=== PATIENT | female | born 1945 | race Caucasian/White ===

== ENCOUNTER 2018-07-17 14:07 | Inpatient (IN) | payer OTHER ==
[~2018-07-17] VITALS: Ht 165.1 cm; Wt 176.0 kg
[2018-07-17 15:05] LABS: BASOPHIL % 0.6 % (0-2); CALCIUM 9.3 mg/dL (8.5-10.1); CARBON DIOXIDE 29.5 mmol/L (21-32); CHLORIDE SERUM 105 mmol/L (98-107); CREATININE SERUM 0.8 mg/dL (0.6-1.0); GLUCOSE SERUM 115 mg/dL (74-106); PLATELET COUNT 183 x10^3mcL (130-400); POTASSIUM SERUM 3.5 mmol/L (3.5-5.1); SODIUM SERUM 141 mmol/L (136-145)
[2018-07-17 15:06] LABS: RED CELL DISTRIBUTION WIDTH 15.3 % (11.5-14.5)
[2018-07-17 15:10] LABS: ALKALINE PHOSPHATASE 88 U/L (46-116); ALT/SGPT 19 U/L (14-59); AST/SGOT 20 U/L (15-37); BILIRUBIN TOTAL 1.4 mg/dL (0.20-1.00); TOTAL PROTEIN, SERUM 6.8 g/dL (6.4-8.2)
[2018-07-17 15:20] LABS: T4(THYROXINE) 8.5 ug/dL (4.7-13.3)
[2018-07-17 16:55] LABS: CHOLESTEROL/HDL RATIO 2.6; MAGNESIUM 1.7 mg/dL (1.8-2.4); PHOSPHOROUS 3.5 mg/dL (2.5-4.9)
[2018-07-17] MEDS ORDERED: KLOR-CON M2020 MEQ PO (17:19)
[2018-07-17] MEDS ORDERED: APAP500 MG PO (17:22)
[2018-07-17] MEDS ORDERED: CRANBERRY425 MG PO (17:24)
[2018-07-17] MEDS ORDERED: VOLTAREN100 GM TOP (17:24)
[2018-07-17] MEDS ORDERED: DIG125 PO (17:25)
[2018-07-17] MEDS ORDERED: CALCIUM CITRAT250 M1 PO (17:25)
[2018-07-17] MEDS ORDERED: XARELTO10 M1 PO (17:26)
[2018-07-17] MEDS ORDERED: LASIX40 MG PO (17:27)
[2018-07-17] MEDS ORDERED: MULTI-VITAMINS1 TAB PO (17:28)
[2018-07-17] MEDS ORDERED: LOTENSIN40 MG PO (17:29)
[2018-07-17] MEDS ORDERED: MAGNESIUM OXID400 MG PO (17:29)
[2018-07-17] MEDS ORDERED: ZYLOPRIM300 MG PO (17:30)
[2018-07-17] MEDS ORDERED: LIPITOR40 MG PO (17:30)
[2018-07-17] MEDS ORDERED: METOPROLOL TAR100 MG PO (17:31)
[2018-07-17] MEDS ORDERED: ASPIR 8181 MG PO (17:32)
[2018-07-17 18:18] VITALS: BP 124/76
[2018-07-17 19:29] VITALS: BP 113/72
[2018-07-17 20:54] VITALS: BP 113/70
[2018-07-17 22:00] VITALS: BP 109/82
[2018-07-18 05:50] VITALS: BP 97/65
[2018-07-18 05:56] LABS: BASOPHIL % 0.6 % (0-2); PLATELET COUNT 182 x10^3mcL (130-400)
[2018-07-18 06:43] LABS: CALCIUM 9.2 mg/dL (8.5-10.1); CARBON DIOXIDE 33.4 mmol/L (21-32); CHLORIDE SERUM 104 mmol/L (98-107); CREATININE SERUM 0.9 mg/dL (0.6-1.0); GLUCOSE SERUM 97 mg/dL (74-106); MAGNESIUM 1.9 mg/dL (1.8-2.4); PHOSPHOROUS 4.2 mg/dL (2.5-4.9); POTASSIUM SERUM 4.3 mmol/L (3.5-5.1); SODIUM SERUM 143 mmol/L (136-145)
[2018-07-18 06:46] LABS: RED CELL DISTRIBUTION WIDTH 15.1 % (11.5-14.5)
[2018-07-18 08:19] VITALS: BP 106/74
[2018-07-18 12:15] VITALS: BP 110/57
[2018-07-18 16:31] VITALS: BP 93/51
[2018-07-18 20:45] VITALS: BP 99/52
[2018-07-18 21:20] LABS: UA SPECIFIC GRAVITY 1.015 (1.005-1.035); microscopic required? YES; urine erythrocyte 2+ (NEGATIVE)
[2018-07-19 05:26] VITALS: BP 102/62
[2018-07-19 08:22] VITALS: BP 105/66
[2018-07-19 12:15] VITALS: BP 93/55
[2018-07-19 17:02] VITALS: BP 94/59
[2018-07-19 21:12] VITALS: BP 96/55
[2018-07-20] VITALS (7 sets, daily range): BP systolic 97–116; BP diastolic 54–74
[2018-07-20 06:37] LABS: CALCIUM 8.6 mg/dL (8.5-10.1); CARBON DIOXIDE 31.1 mmol/L (21-32); CHLORIDE SERUM 105 mmol/L (98-107); CREATININE SERUM 0.7 mg/dL (0.6-1.0); GLUCOSE SERUM 108 mg/dL (74-106); PHOSPHOROUS 3.4 mg/dL (2.5-4.9); SODIUM SERUM 141 mmol/L (136-145)
[2018-07-20 06:56] LABS: POTASSIUM SERUM 2.6 mmol/L (3.5-5.1)
[2018-07-20 07:36] LABS: BASOPHIL % 0.5 % (0-2); PLATELET COUNT 181 x10^3mcL (130-400)
[2018-07-20 07:41] LABS: RED CELL DISTRIBUTION WIDTH 15.2 % (11.5-14.5)
[2018-07-20 21:07] LABS: ALBUMIN 2.8 g/dL (3.4-5.0); ALKALINE PHOSPHATASE 66 U/L (46-116); ALT/SGPT 14 U/L (14-59); AST/SGOT 15 U/L (15-37); BILIRUBIN TOTAL 1.9 mg/dL (0.20-1.00); CALCIUM 8.6 mg/dL (8.5-10.1); CARBON DIOXIDE 32.3 mmol/L (21-32); CHLORIDE SERUM 104 mmol/L (98-107); CREATININE SERUM 0.8 mg/dL (0.6-1.0); GLUCOSE SERUM 114 mg/dL (74-106); POTASSIUM SERUM 3.2 mmol/L (3.5-5.1); SODIUM SERUM 140 mmol/L (136-145); TOTAL PROTEIN, SERUM 6.1 g/dL (6.4-8.2)
[2018-07-21 04:57] VITALS: BP 119/71
[2018-07-21 06:03] LABS: BASOPHIL % 0.4 % (0-2); PLATELET COUNT 208 x10^3mcL (130-400)
[2018-07-21 06:07] LABS: CALCIUM 8.8 mg/dL (8.5-10.1); CARBON DIOXIDE 34.4 mmol/L (21-32); CHLORIDE SERUM 104 mmol/L (98-107); CREATININE SERUM 0.9 mg/dL (0.6-1.0); GLUCOSE SERUM 108 mg/dL (74-106); PHOSPHOROUS 3.4 mg/dL (2.5-4.9); POTASSIUM SERUM 3.3 mmol/L (3.5-5.1); SODIUM SERUM 143 mmol/L (136-145)
[2018-07-21 06:10] LABS: RED CELL DISTRIBUTION WIDTH 15.3 % (11.5-14.5)
[2018-07-21 10:08] VITALS: BP 104/69
[2018-07-21 10:59] VITALS: BP 99/54
[2018-07-21 14:40] VITALS: BP 100/50
[2018-07-21 17:42] VITALS: BP 101/78
[2018-07-21 19:59] VITALS: BP 127/64
[2018-07-22 05:21] VITALS: BP 138/69
[2018-07-22 09:20] VITALS: BP 125/70
[2018-07-22 12:55] VITALS: BP 120/51
[2018-07-22 17:07] VITALS: BP 101/68
[2018-07-22 20:41] VITALS: BP 94/55
[2018-07-23 05:40] VITALS: BP 101/41
[2018-07-23 06:17] LABS: BASOPHIL % 0.7 % (0-2); PLATELET COUNT 217 x10^3mcL (130-400)
[2018-07-23 06:20] LABS: CARBON DIOXIDE 32.7 mmol/L (21-32); CHLORIDE SERUM 105 mmol/L (98-107); CREATININE SERUM 0.7 mg/dL (0.6-1.0); GLUCOSE SERUM 100 mg/dL (74-106); POTASSIUM SERUM 3.4 mmol/L (3.5-5.1); SODIUM SERUM 141 mmol/L (136-145)
[2018-07-23 06:38] LABS: RED CELL DISTRIBUTION WIDTH 15.5 % (11.5-14.5)
[2018-07-23 09:14] VITALS: BP 148/97
[2018-07-23] MEDS ORDERED: DOXYCYCLINE HY100 MG PO (11:08)
[2018-07-23] MEDS ORDERED: BACO TOP (11:09)
[2018-07-23 13:47] VITALS: BP 118/65
[2018-07-23 13:54] VITALS: Ht 165.1 cm; Wt 176.0 kg
[2018-07-23 17:59] VITALS: BP 118/65
[2018-07-23 20:48] VITALS: BP 116/68
[2018-07-23 21:11] VITALS: BP 116/68
== END 2018-07-24 01:38 | disposition short-term general hospital (02) | DRG 193 ==
LOC: ED 14:07 → DU 16:20
PROVIDERS: Emergency Medicine; Internal Medicine
DX: J18.9 Pneumonia, unspecified organism (principal); J96.00 Acute respiratory failure, unspecified whether with hypoxia or hypercapnia; G93.41 Metabolic encephalopathy; N17.0 Acute kidney failure with tubular necrosis; J44.1 Chronic obstructive pulmonary disease with (acute) exacerbation; N39.0 Urinary tract infection, site not specified; D68.69 Other thrombophilia; I48.2 Chronic atrial fibrillation; R73.03 Prediabetes; I27.20 Pulmonary hypertension, unspecified; I11.9 Hypertensive heart disease without heart failure; E87.6 Hypokalemia; E83.42 Hypomagnesemia; E78.49 Other hyperlipidemia; N63.0 Unspecified lump in unspecified breast; M10.9 Gout, unspecified; Z87.442 Personal history of urinary calculi; Z79.82 Long term (current) use of aspirin; Z86.711 Personal history of pulmonary embolism; Z79.01 Long term (current) use of anticoagulants; Z22.322 Carrier or suspected carrier of Methicillin resistant Staphylococcus aureus
CPT/HCPCS: 36600; 83880; 92610-GN; 94150; 97110-GP; 97116-GP; 97530-GP; J1160; J2543; J3480; J3490; J7030; J7050; J7626; J7644; Q0092; Q9967

== ENCOUNTER 2018-08-08 16:39 | Inpatient (IN) | payer OTHER ==
[~2018-08-08] VITALS: Ht 165.1 cm; Wt 159.9 kg
[~2018-08-08 16:39] MED LIST: APAP500 MG PO; ASPIR 8181 MG PO; BACO TOP; CALCIUM CITRAT250 M1 PO; CRANBERRY425 MG PO; DIG125 PO; DOXYCYCLINE HY100 MG PO; KLOR-CON M2020 MEQ PO; LASIX40 MG PO; LIPITOR40 MG PO; LOTENSIN40 MG PO; MAGNESIUM OXID400 MG PO; METOPROLOL TAR100 MG PO; MULTI-VITAMINS1 TAB PO; VOLTAREN100 GM TOP; XARELTO10 M1 PO; ZYLOPRIM300 MG PO
[2018-08-08 16:47] VITALS: Ht 165.1 cm; Wt 159.9 kg
[2018-08-08 17:13] LABS: BASOPHIL % 0.6 % (0-2); PLATELET COUNT 201 x10^3mcL (130-400)
[2018-08-08 17:14] LABS: RED CELL DISTRIBUTION WIDTH 15.8 % (11.5-14.5)
[2018-08-08 17:26] LABS: CALCIUM 9.1 mg/dL (8.5-10.1); CARBON DIOXIDE 29.9 mmol/L (21-32); CHLORIDE SERUM 107 mmol/L (98-107); CREATININE SERUM 0.9 mg/dL (0.6-1.0); GLUCOSE SERUM 130 mg/dL (74-106); POTASSIUM SERUM 4.1 mmol/L (3.5-5.1); SODIUM SERUM 146 mmol/L (136-145)
[2018-08-08 17:38] LABS: ALBUMIN 3.2 g/dL (3.4-5.0); ALKALINE PHOSPHATASE 94 U/L (46-116); ALT/SGPT 25 U/L (14-59); AST/SGOT 16 U/L (15-37); BILIRUBIN TOTAL 2.39 mg/dL (0.20-1.00); FREE T4 1.15 ng/dL (0.76-1.46); LIPASE 181 IU/L (73-393); TOTAL PROTEIN, SERUM 7.1 g/dL (6.4-8.2)
[2018-08-08] MEDS ORDERED: KEFLEX500 M1 PO (19:16)
[2018-08-08] MEDS ORDERED: SENNA LAXATIVE1 EACH PO (19:17)
[2018-08-08] MEDS ORDERED: LEVAQUIN500 M1 PO (19:17)
[2018-08-08 19:40] LABS: MAGNESIUM 1.9 mg/dL (1.8-2.4); PHOSPHOROUS 3.7 mg/dL (2.5-4.9)
[2018-08-08 19:43] LABS: FREE THYROXINE INDEX 3.1 ug/dL (1.4-4.5)
[2018-08-08 19:47] LABS: FREE T4 1.17 ng/dL (0.76-1.46); T4(THYROXINE) 8.3 ug/dL (4.7-13.3)
[2018-08-08 19:56] LABS: CHOLESTEROL/HDL RATIO 2.8
[2018-08-08 20:21] VITALS: BP 146/83
[2018-08-08 23:19] LABS: UA SPECIFIC GRAVITY 1.015 (1.005-1.035); microscopic required? YES; urine erythrocyte 1+ (NEGATIVE)
[2018-08-09 05:25] VITALS: BP 146/69
[2018-08-09 07:54] LABS: CALCIUM 9.1 mg/dL (8.5-10.1); CARBON DIOXIDE 28.3 mmol/L (21-32); CHLORIDE SERUM 108 mmol/L (98-107); CREATININE SERUM 0.7 mg/dL (0.6-1.0); GLUCOSE SERUM 109 mg/dL (74-106); POTASSIUM SERUM 3.3 mmol/L (3.5-5.1); SODIUM SERUM 144 mmol/L (136-145)
[2018-08-09 08:28] LABS: BASOPHIL % 0.5 % (0-2); PLATELET COUNT 168 x10^3mcL (130-400)
[2018-08-09 08:30] LABS: RED CELL DISTRIBUTION WIDTH 15.4 % (11.5-14.5)
[2018-08-09 09:06] VITALS: BP 140/83
[2018-08-09 11:00] VITALS: BP 144/84
[2018-08-09 15:54] VITALS: BP 100/53
[2018-08-10] VITALS (9 sets, daily range): BP systolic 95–149; BP diastolic 63–89
[2018-08-10 03:50] LABS: BASOPHIL % 0.4 % (0-2); PLATELET COUNT 161 x10^3mcL (130-400)
[2018-08-10 04:07] LABS: RED CELL DISTRIBUTION WIDTH 15.7 % (11.5-14.5)
[2018-08-10 04:10] LABS: CALCIUM 8.4 mg/dL (8.5-10.1); CARBON DIOXIDE 24.5 mmol/L (21-32); CHLORIDE SERUM 111 mmol/L (98-107); CREATININE SERUM 0.7 mg/dL (0.6-1.0); GLUCOSE SERUM 122 mg/dL (74-106); MAGNESIUM 1.9 mg/dL (1.8-2.4); PHOSPHOROUS 3.8 mg/dL (2.5-4.9); POTASSIUM SERUM 3.6 mmol/L (3.5-5.1); SODIUM SERUM 143 mmol/L (136-145)
[2018-08-11 05:30] VITALS: BP 107/63
[2018-08-11 07:38] LABS: CALCIUM 8.7 mg/dL (8.5-10.1); CARBON DIOXIDE 29.2 mmol/L (21-32); CHLORIDE SERUM 109 mmol/L (98-107); CREATININE SERUM 0.7 mg/dL (0.6-1.0); GLUCOSE SERUM 114 mg/dL (74-106); MAGNESIUM 1.9 mg/dL (1.8-2.4); PHOSPHOROUS 3.7 mg/dL (2.5-4.9); POTASSIUM SERUM 3.4 mmol/L (3.5-5.1); SODIUM SERUM 145 mmol/L (136-145)
[2018-08-11 07:49] LABS: BASOPHIL % 0.5 % (0-2); PLATELET COUNT 160 x10^3mcL (130-400)
[2018-08-11 07:55] LABS: RED CELL DISTRIBUTION WIDTH 15.9 % (11.5-14.5)
[2018-08-11 08:53] VITALS: BP 132/63
[2018-08-11 17:35] VITALS: BP 120/71
[2018-08-11 18:17] VITALS: BP 120/71
[2018-08-11 20:53] VITALS: BP 101/56
[2018-08-11 22:15] VITALS: BP 113/58
[2018-08-12 05:22] VITALS: BP 123/89
[2018-08-12 08:24] VITALS: BP 137/77
[2018-08-12 12:50] VITALS: BP 104/53
[2018-08-12 17:45] VITALS: BP 110/58
[2018-08-12 21:20] VITALS: BP 130/52
[2018-08-13 05:51] VITALS: BP 104/74
[2018-08-13 08:30] VITALS: BP 121/64
[2018-08-13 15:03] VITALS: BP 96/68
[2018-08-13 15:24] LABS: CALCIUM 8.6 mg/dL (8.5-10.1); CARBON DIOXIDE 31.4 mmol/L (21-32); CHLORIDE SERUM 105 mmol/L (98-107); CREATININE SERUM 0.8 mg/dL (0.6-1.0); GLUCOSE SERUM 129 mg/dL (74-106); POTASSIUM SERUM 3.3 mmol/L (3.5-5.1); SODIUM SERUM 141 mmol/L (136-145)
[2018-08-13 17:02] VITALS: BP 108/46
[2018-08-13 20:26] VITALS: BP 145/72
[2018-08-14 05:34] VITALS: BP 158/93
[2018-08-14 06:56] LABS: CALCIUM 8.9 mg/dL (8.5-10.1); CARBON DIOXIDE 30.2 mmol/L (21-32); CHLORIDE SERUM 106 mmol/L (98-107); CREATININE SERUM 0.7 mg/dL (0.6-1.0); GLUCOSE SERUM 109 mg/dL (74-106); SODIUM SERUM 142 mmol/L (136-145)
[2018-08-14 09:30] VITALS: BP 153/90
[2018-08-14 13:20] VITALS: BP 147/91
[2018-08-14 17:15] VITALS: BP 109/44
[2018-08-14 21:35] VITALS: BP 152/113
[2018-08-15 05:51] VITALS: BP 137/68
[2018-08-15 09:47] VITALS: BP 106/82
[2018-08-15] MEDS ORDERED: COR200 PO (11:32)
[2018-08-15] MEDS ORDERED: AMIODARONE HCL200 MG PO (11:36)
[2018-08-15] MEDS ORDERED: ACETAMINOPHEN-H1 TA1 PO (12:10)
[2018-08-15 13:09] VITALS: BP 106/82
[2018-08-15 13:36] VITALS: BP 139/73
[2018-08-15 13:38] VITALS: BP 120/68
== END 2018-08-15 14:12 | DRG 308 ==
LOC: ED 16:39 → DU 18:27 → IC 18:27 → DU 19:51 → IC 08-09 10:42 → DU 08-10 14:50
PROVIDERS: Emergency Medicine; Family Medicine; Internal Medicine
DX: I48.0 Paroxysmal atrial fibrillation (principal); I50.33 Acute on chronic diastolic (congestive) heart failure; Z68.43 Body mass index [BMI] 50.0-59.9, adult; E87.0 Hyperosmolality and hypernatremia; E44.1 Mild protein-calorie malnutrition; J45.901 Unspecified asthma with (acute) exacerbation; D68.59 Other primary thrombophilia; N39.0 Urinary tract infection, site not specified; R73.03 Prediabetes; G47.33 Obstructive sleep apnea (adult) (pediatric); M10.9 Gout, unspecified; E66.01 Morbid (severe) obesity due to excess calories; M19.90 Unspecified osteoarthritis, unspecified site; Z86.711 Personal history of pulmonary embolism; Z79.01 Long term (current) use of anticoagulants
CPT/HCPCS: 83880; 84439; 97110-GP; 97116-GP; 97530-GP; G0480; J0282; J1160; J1956; J3490; J7030; J7040; J7050; J7626; J7644; Q0092